=== PATIENT | male | born 1945 | race Caucasian/White ===

== ENCOUNTER 2017-10-26 13:57 | Outpatient (CLI) | payer MEDICARE, OTHER ==
--- NOTE | 2017-10-26 16:20 | CT ---
NONCONTRAST CT PELVIS 10/26/17 HISTORY: Outside radiograph of the pelvis. Report is available which mentions possible subtle insufficiency fr acture of the right hip and CT exam was recommended. COMPARISON: No imaging studies are available for direct comparison. There is no evidence of an acute fracture involving the pelvis including bilateral hips. There is no hip dislocation present. Minimal bilateral hip osteoarthritis is present. There are degenerative hampton ges seen in the imaged portion of the lower lumbar spine. There is irregularity involving the lower portion of the sacrum which is probably developmental in or igin versus a remote fracture and deformity. Vascular calcifications are seen in the visualized imaged distal infrarenal abdominal aorta involving the iliac and visualized femoral arteries. A saccular aneurysm involves the distal right common linda c artery which measures 2.8 cm. Low density area is seen centrally and findings could be related to t hrombus within the aneurysm. It is difficult to adequately evaluate on a noncontrasted CT scan exam. There is an exophytic approximately 3.2 cm lesion within the junction of the mid portion inferior neetu e right kidney which is difficult to adequately characterize on this exam but as this is incompletely imaged, but the attenuation coefficient is suggestive of fluid attenuation related to a cyst. There is colonic diverticulosis. There is subcutaneous edema seen adjacent to the right hip primarily in the region of the greater tro chanter on the right. No joint effusion is present. A sclerotic lesion is seen within the left pubic bone which has characteristics most compatible with a bone island. IMPRESSION: 1. 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 2. Subcutaneous edema adjacent to the right hip, but no right hip fracture is visualized on this examination. 3. Prominent degenerative changes lower lumbar spine. 4. Incompletely imaged hypodense lesion at junction of the mid portion and inferior pole right [place] likely related to incomplete visualization of a cyst. 5. Colonic diverticulosis. POS: AMANDA
== END 2017-10-26 13:58 | disposition home or self-care (01) ==
LOC: MADCT 13:57
PROVIDERS: ATTEND Family Medicine
DX: S12.001A Unspecified nondisplaced fracture of first cervical vertebra, initial encounter for closed fracture (principal); W19.XXXA Unspecified fall, initial encounter; M47.896 Other spondylosis, lumbar region; K57.90 Diverticulosis of intestine, part unspecified, without perforation or abscess without bleeding; N28.89 Other specified disorders of kidney and ureter; I72.3 Aneurysm of iliac artery; R60.9 Edema, unspecified
CPT/HCPCS: 72192